=== PATIENT | female | born 1965 | race Caucasian/White ===

== ENCOUNTER → 2016-11-10 | Outpatient (CLI) | payer BC ==
[~2016-11-10] MED LIST: DEPA500T2; EFFE75CA75; QUET30XR
[2016-11-10 09:50] LABS: ALBUMIN 3.5 GM/DL (3.2-5.2); ALBUMIN/GLOBULIN RATIO 1.3 (1.00-1.93); BILIRUBIN,DIRECT 0.2 MG/DL (0.0-0.2); BILIRUBIN,TOTAL 0.5 MG/DL (0.2-1.0); TOTAL PROTEIN 6.2 GM/DL (6.4-8.2)
== END ==
LOC: M LAB 08:34
PROVIDERS: ATTEND Psychiatry & Neurology Psychiatry
DX: Z79.899 Other long term (current) drug therapy (principal); Z51.81 Encounter for therapeutic drug level monitoring

== ENCOUNTER → 2017-10-08 | Outpatient (CLI) | payer BC ==
[2017-10-08 08:55] LABS: VALPROIC ACID (DEPAKOTE) 56.7 UG/ML (50.0-100.0)
== END ==
LOC: M LAB 07:48
DX: Z79.899 Other long term (current) drug therapy (principal)
CPT/HCPCS: 80164

== ENCOUNTER → 2017-12-03 | Outpatient (REF) | payer BC ==
[2017-12-09 14:16] LABS: HPV HYBRID CAPTURE II Negative (Negative)
== END ==
LOC: M SFHCWAGY 15:12
DX: Z12.4 Encounter for screening for malignant neoplasm of cervix (principal)
CPT/HCPCS: G0123

== ENCOUNTER → 2017-12-03 | Outpatient (CLI) | payer BC | LOC: M WHC 14:28 | DX: Z12.31 Encounter for screening mammogram for malignant neoplasm of breast (principal) ==

== ENCOUNTER → 2018-04-15 | Outpatient (CLI) | payer BC ==
[2018-04-15 11:25] LABS: PLATELET COUNT, AUTOMATED 273 10^3/uL (150-450)
[2018-04-15 12:03] LABS: ALBUMIN 3.8 GM/DL (3.2-5.2); ALBUMIN/GLOBULIN RATIO 1.15 (1.00-1.93); ALKALINE PHOSPHATASE 37 U/L (45-117); ALT/SGPT 22 U/L (12-78); AST/SGOT 15 U/L (7-37); BILIRUBIN,DIRECT 0.1 MG/DL (0.0-0.2); BILIRUBIN,TOTAL 0.4 MG/DL (0.2-1.0); TOTAL PROTEIN 7.1 GM/DL (6.4-8.2); VALPROIC ACID (DEPAKOTE) 83.7 UG/ML (50.0-100.0)
== END ==
LOC: M LAB 10:26
DX: Z91.19 Patient's noncompliance with other medical treatment and regimen (principal)
CPT/HCPCS: 80164

== ENCOUNTER 2018-08-04 09:55 | Day surgery (SDC) | payer BC ==
[~2018-08-04] VITALS: Ht 160 cm; Wt 80.7 kg
[~2018-08-04 09:55] MED LIST changes: +DIVA250T7 PO; +LAMI1TAB7 PO; +LIDOCAINE 2% INJ 100 MG/5 ML SDV (FOR ANES.) As Ordered ONE; +PROPOFOL 200 MG/20 ML VIAL As Ordered ONE
[2018-08-04] MEDS ORDERED: NS 1,000 ML IV ONE (10:30)
[2018-08-04] MEDS ORDERED: PROPOFOL 200 MG/20 ML VIAL As Ordered ONE (10:49)
--- NOTE | 2018-08-04 10:55 | ROOR ---
Patient Name: Kim Fong Procedure Date: 08/04/2018 10:30 AM Date of : 1965 Age: 52 Room: [facility] Gender: Female Note Status: Finalized Procedure: Colonoscopy Indications: Screening for colorectal malignant neoplasm Providers: Sid POOLE MD Referring MD: Boris Womack MD Requesting Provider: Medicines: Monitored Anesthesia Care Complications: No immediate complications. Procedure: Pre-Anesthesia Assessment: - The heart rate, respiratory rate, oxygen saturations, blood pressure, adequacy of pulmonary ventilation, and response to care were monitored throughout the procedure. The Colonoscope was introduced through the anus and advanced to the cecum, identified by appendiceal orifice and ileocecal valve. The colonoscopy was performed without difficulty. The patient tolerated the procedure well. The quality of the bowel preparation was good. Findings: The perianal and digital rectal examinations were normal. Mild sigmoid diverticulosis and small internal hemorrhoids. The entire examined colon appeared normal on direct and retroflexion views. Impression: - Mild sigmoid diverticulosis and small internal hemorrhoids. - The entire examined colon is normal on direct and retroflexion views. - No specimens collected. Recommendation: - Repeat colonoscopy in 10 years for screening purposes. Sid Poole MD Sid POOLE MD 08/04/2018 10:54:52 AM This report has been signed electronically. Number of Addenda: 0 Note Initiated On: 08/04/2018 10:30 AM Estimated Blood Loss: Estimated blood loss: none.
[2018-08-04 11:26] VITALS: BP 115/70
== END 2018-08-04 11:27 | disposition home or self-care (01) ==
LOC: M OPP 09:55
PROVIDERS: ATTEND Internal Medicine Gastroenterology
DX: Z12.11 Encounter for screening for malignant neoplasm of colon (principal); K57.30 Diverticulosis of large intestine without perforation or abscess without bleeding; K64.8 Other hemorrhoids; F32.9 Major depressive disorder, single episode, unspecified; Z82.49 Family history of ischemic heart disease and other diseases of the circulatory system; Z83.3 Family history of diabetes mellitus; Z79.899 Other long term (current) drug therapy

== ENCOUNTER → 2020-12-05 | Outpatient (REF) | payer BC ==
[~2020-12-05] MED LIST changes: -LIDOCAINE 2% INJ 100 MG/5 ML SDV (FOR ANES.) As Ordered ONE; -PROPOFOL 200 MG/20 ML VIAL As Ordered ONE; -QUET30XR; +SERO300T20
== END ==
LOC: M SFHCWAGY 15:18
PROVIDERS: ATTEND Nurse Practitioner Women's Health
DX: Z12.4 Encounter for screening for malignant neoplasm of cervix (principal)
CPT/HCPCS: 87624; G0123

== ENCOUNTER → 2020-12-05 | Outpatient (CLI) | payer BC ==
--- NOTE | 2020-12-05 15:09 | REPMRS ---
Patient History The patient states she had a clinical breast exam in November 2020. Family history of breast cancer at age 50 or over in paternal grandmother, prostate cancer under age 50 in paternal uncle. Taking hormonal contraceptives for 21 years. No breast complaints today Patient signed the MRS sheet No covid vaccine Patient states she has a 20lb intentional weight loss since her last mammo [facility] on PACS Patient Identification Verified Digital Woman Screen Mammo: December 05, 2020 - Exam #: [id number] Bilateral CC and MLO view(s) were taken. Technologist: Montse Ramos, Technologist Prior study comparison: December 03, 2017, digital woman screen mammo performed at [facility]. March 12, 2015, digital woman screen mammo performed at [facility]. October 25, 2013, digital woman screen mammo performed at [facility]. FINDINGS: There are scattered fibroglandular densities. The Volpara volumetric breast density category is:B. There has been no change in the appearance of the mammogram from the prior studies. There is a mild amount of scattered fibroglandular density which is fairly symmetric. There is no interval development of dominant mass, architectural distortion, or grouped microcalcification suggestive of malignancy. 3-D tomosynthesis shows no additional findings. Assessment: BI-RADS/ACR category 1 mammogram. Negative Mammogram. Recommendation Routine screening mammogram of both breasts in 1 year (for women over age 40). This patient's [facility] Lifetime Breast Cancer Risk is estimated at 13.8 %. This mammogram was interpreted with the aid of an FDA-approved computer-aided dectection system. Electronically Signed By: Jalen Ash MD 12/05/20 3038
== END ==
LOC: M WHC 13:52
PROVIDERS: ATTEND Nurse Practitioner Women's Health
DX: Z12.31 Encounter for screening mammogram for malignant neoplasm of breast (principal); Z80.3 Family history of malignant neoplasm of breast; Z79.890 Hormone replacement therapy; R92.2 Inconclusive mammogram

== ENCOUNTER → 2021-05-29 | Outpatient (REF) | payer BC ==
[2021-05-29 13:03] LABS: HEMATOCRIT 39.3 % (36.0-47.0); HEMOGLOBIN 13.6 g/dl (12.0-15.5); MEAN CORPUSCULAR HEMOGLOBIN 33.3 pg (27.0-33.0); MEAN CORPUSCULAR HGB CONC 34.6 g/dl (32.0-36.5); MEAN CORPUSCULAR VOLUME 96.3 fl (80.0-96.0); PLATELET COUNT, AUTOMATED 259 10^3/uL (150-450); RED BLOOD COUNT 4.08 10^6/uL (4.00-5.40)
[2021-05-29 13:21] LABS: HEMOGLOBIN A1c 5.2 %
[2021-05-29 13:37] LABS: ALBUMIN 3.5 GM/DL (3.2-5.2); ALT/SGPT 31 U/L (12-78); BILIRUBIN,TOTAL 0.6 MG/DL (0.2-1.0); BLOOD UREA NITROGEN 13 MG/DL (7-18); CALCIUM LEVEL 9.2 MG/DL (8.5-10.1); CARBON DIOXIDE LEVEL 31 MEQ/L (21-32); CHLORIDE LEVEL 95 MEQ/L (98-107); CHOLESTEROL LEVEL 249 MG/DL (<200); CHOLESTEROL RISK RATIO 2.964 (<5); CREATININE FOR GFR 0.78 MG/DL (0.55-1.30); FREE T4 0.88 NG/DL (0.76-1.46); GLOMERULAR FILTRATION RATE > 60.0 (>51); GLUCOSE, FASTING 90 MG/DL (70-100); HDL CHOLESTEROL 84 MG/DL (>40); LDL CHOLESTEROL 151 MG/DL (<100); NON-HDL-C 165 MG/DL; POTASSIUM SERUM 4.3 MEQ/L (3.5-5.1); SODIUM LEVEL 132 MEQ/L (136-145); TOTAL PROTEIN 6.5 GM/DL (6.4-8.2); TRIGLYCERIDES LEVEL 70 MG/DL (<150)
== END ==
LOC: M SFHCADAM 08:46
PROVIDERS: ATTEND Family Medicine
DX: R73.03 Prediabetes (principal); E78.5 Hyperlipidemia, unspecified; F31.30 Bipolar disorder, current episode depressed, mild or moderate severity, unspecified

== ENCOUNTER → 2023-01-08 | Outpatient (CLI) | payer BC, OTHER | LOC: M ADAMS 10:27 | PROVIDERS: ATTEND Family Medicine | DX: M89.8X7 Other specified disorders of bone, ankle and foot (principal) ==

== ENCOUNTER → 2023-02-05 | Outpatient (CLI) | payer BC, OTHER | LOC: M WHC 16:30 | PROVIDERS: ATTEND Nurse Practitioner Women's Health | DX: Z12.31 Encounter for screening mammogram for malignant neoplasm of breast (principal) ==

== ENCOUNTER → 2023-02-05 | Outpatient (REF) | payer BC, OTHER | LOC: M SFHCWAGY 18:06 | PROVIDERS: ATTEND Nurse Practitioner Women's Health | DX: Z12.4 Encounter for screening for malignant neoplasm of cervix (principal) | CPT/HCPCS: 87624; G0123 ==

== ENCOUNTER → 2025-06-05 | Outpatient (REF) | payer OTHER ==
[2025-06-06 14:17] LABS: HPV APTIMA Not Detected (Not Detected)
== END ==
LOC: M PLALAB 08:30
PROVIDERS: ATTEND Nurse Practitioner Family
DX: Z12.4 Encounter for screening for malignant neoplasm of cervix (principal)
CPT/HCPCS: 87624; G0123

== ENCOUNTER → 2025-06-05 | Outpatient (CLI) | payer OTHER | LOC: M WHC 07:44 | PROVIDERS: ATTEND Nurse Practitioner Family | DX: Z12.31 Encounter for screening mammogram for malignant neoplasm of breast (principal) ==